=== PATIENT | female | born 1975 | race Caucasian/White ===

== ENCOUNTER → 2021-06-07 | Outpatient (CLI) | payer BC ==
[~2021-06-07] MED LIST: AMBEREN; FLONASE ALLERG9.9 ML INH; IBUPROFEN200 MG PO; LEVOTHYROXINE75 MCG PO
== END ==
LOC: MAMMO 12:29
PROVIDERS: ATTEND Obstetrics & Gynecology
DX: Z12.31 Encounter for screening mammogram for malignant neoplasm of breast (principal)
CPT/HCPCS: 77067

== ENCOUNTER 2021-06-08 10:30 | Observation (INO) | payer BC ==
[2021-06-05 12:14] LABS: BASOPHILS % 0.5 % (0.0-1.0); EOSINOPHILS # (AUTO) 0.1 (0.0-0.4); EOSINOPHILS % 0.7 % (0.0-6.0); HEMOGLOBIN 13.9 g/dL (12.0-16.0); LYMPHOCYTES # (AUTO) 1.6 (1.0-3.2); LYMPHOCYTES % 19.5 % (18.0-39.1); MEAN CORPUSCULAR HEMOGLOBIN 32.3 pg (28-32); MEAN CORPUSCULAR HGB CONC 33.9 g/dL (31-35); MEAN CORPUSCULAR VOLUME 95.1 fL (81-99); MONOCYTES # (AUTO) 0.6 (0.2-0.8); MONOCYTES % 6.9 % (4.4-11.3); NEUTROPHILS # (AUTO) 5.8 (2.1-6.9); NEUTROPHILS % 72.2 % (38.7-80.0); PLATELET COUNT 238 x10e3/uL (140-360); RED BLOOD COUNT 4.31 x10e6/uL (3.6-5.1); RED CELL DISTRIBUTION WIDTH 13.2 % (11.7-14.4)
[2021-06-05 12:21] LABS: CLARITY,URINE CLEAR (CLEAR); COLOR,URINE YELLOW (YELLOW); KETONES,URINE NEGATIVE (NEGATIVE); LEUKOCYTE ESTERASE ,URINE NEGATIVE (NEGATIVE); NITRITE,URINE NEGATIVE (NEGATIVE); PROTEIN,URINE DIPSTICK NEGATIVE (NEGATIVE)
[2021-06-05 12:22] LABS: URINE UROBILINOGEN 0.2 mg/dL (0.2 - 1)
[2021-06-05 12:31] LABS: ANION GAP 13.5 mmol/L (8-16); BLOOD UREA NITROGEN 18 mg/dL (7-26); BUN/CREATININE RATIO 20 (6-25); CALCIUM 9.6 mg/dL (8.4-10.2); CARBON DIOXIDE 28 mmol/L (22-29); CHLORIDE 101 mmol/L (98-107); CREATININE, SERUM 0.88 mg/dL (0.57-1.11); EST GLOMERULAR FILTRATION RATE 69 ML/MIN (60-); GLUCOSE 86 mg/dL (74-118); POTASSIUM 4.5 mmol/L (3.5-5.1); SODIUM 138 mmol/L (136-145)
[~2021-06-08] VITALS: Ht 165.1 cm; Wt 95.7 kg
[~2021-06-08 10:30] MED LIST changes: -IBUPROFEN200 MG PO
[2021-06-08] MEDS ORDERED: LIDOCAINE 1% W/EPINEPHRINE 20 ML VIAL ONE (11:33)
[2021-06-08] MEDS ORDERED: BUPIVACAINE 0.25% 30ML SDV ONE (11:33)
[2021-06-08] MEDS ORDERED: SODIUM CHLORIDE 0.9% 50ML 100 ML ONE (11:52)
[2021-06-08] MEDS ORDERED: IBUPROFEN200 MG PO (11:55)
[2021-06-08] MEDS ORDERED: ACETAMINOPHEN 1000 MG/100 ML 100 ML IV ONE (13:03)
[2021-06-08] MEDS ORDERED: DOCUSATE SODIUM 100 MG CAP PO PRN (16:00)
[2021-06-08] MEDS ORDERED: DIPHENHYDRAMINE HCL 25 MG CAP PO PRN (16:00)
[2021-06-08] MEDS ORDERED: ACETAMINOPHEN 325 MG TAB PO PRN (16:00)
[2021-06-08] MEDS ORDERED: BISACODYL 10 MG SUPP PR PRN (16:00)
[2021-06-08] MEDS ORDERED: Morphine 4mg Syringe 4 MG/ML INJ IM PRN (16:00)
[2021-06-08] MEDS ORDERED: FLUTICASONE PROPIONATE NASAL SPRAY NS PRN (16:00)
[2021-06-08] MEDS ORDERED: FENTANYL CITRATE/PF 100MCG/2 ML INJ ONE (16:16)
[2021-06-08 16:50] VITALS: BP 125/81
[2021-06-08 17:11] VITALS: BP 125/81
[2021-06-08] MEDS: DEXTROSE 5%/LACTATED RINGERS 1,000 ML IV SCH ×2 (18:00→23:27)
[2021-06-08] MEDS: SIMETHICONE 80 MG CHEW PO SCH ×2 (18:00→21:17)
[2021-06-08] MEDS: KETOROLAC TROMETHAMINE 30 MG/ML VIAL IV SCH ×2 (18:00→23:27)
[2021-06-08] MEDS: ONDANSETRON HCL INJ 2MG/ML 2ML 2 MG/ML VIAL IV PRN ×2 (18:00→23:27)
[2021-06-08] MEDS ORDERED: LIDOCAINE HCL 2% LOCAL INJ 5 ML SDV VIAL INJ ONE (19:39)
[2021-06-08] MEDS ORDERED: ONDANSETRON HCL INJ 2MG/ML 2ML 2 MG/ML VIAL ONE (19:39)
[2021-06-08] MEDS ORDERED: KETOROLAC TROMETHAMINE 30 MG/ML VIAL ONE (19:39)
[2021-06-08] MEDS ORDERED: GLYCOPYRROLATE INJ 0.2 MG/ML VIAL ONE (19:39)
[2021-06-08] MEDS ORDERED: DEXAMETHASONE SOD PHOS INJ 4 MG/ML SDV ONE (19:39)
[2021-06-08] MEDS ORDERED: PROPOFOL IV EMULSION 10 MG/ML 20 ML VIAL ONE (19:39)
[2021-06-08] MEDS ORDERED: ACETAMINOPHEN 1000 MG/100 ML IV ONE (19:39)
[2021-06-08] MEDS ORDERED: SEVOFLURANE INHAL SOLN 250 ML PEN BTL ONE (19:39)
[2021-06-08] MEDS ORDERED: POVIDONE IODINE 0.05% 0.05 % ML PO ONE (19:39)
[2021-06-08] MEDS ORDERED: ROCURONIUM BROMIDE 10 MG/ML 5ML VIAL IV ONE (19:39)
[2021-06-08] MEDS ORDERED: NEOSTIGMINE 1 MG/ML 10ML VIAL ONE (19:39)
[2021-06-08 20:00] VITALS: BP 118/78
[2021-06-09 04:00] VITALS: BP 112/68
[2021-06-09] MEDS ORDERED: SODIUM CHLORIDE 0.9% 50ML 50 ML ONE (04:34)
[2021-06-09 04:57] LABS: BASOPHILS % 0.1 % (0.0-1.0); HEMATOCRIT 36.4 % (34.2-44.1); HEMOGLOBIN 12.3 g/dL (12.0-16.0); LYMPHOCYTES # (AUTO) 0.9 (1.0-3.2); LYMPHOCYTES % 6.7 % (18.0-39.1); MEAN CORPUSCULAR HEMOGLOBIN 32.5 pg (28-32); MEAN CORPUSCULAR HGB CONC 33.8 g/dL (31-35); MONOCYTES # (AUTO) 0.8 (0.2-0.8); MONOCYTES % 5.6 % (4.4-11.3); NEUTROPHILS # (AUTO) 12.2 (2.1-6.9); NEUTROPHILS % 87.2 % (38.7-80.0); PLATELET COUNT 226 x10e3/uL (140-360); RED BLOOD COUNT 3.79 x10e6/uL (3.6-5.1); RED CELL DISTRIBUTION WIDTH 13.3 % (11.7-14.4)
[2021-06-09 05:18] LABS: ANION GAP 11.3 mmol/L (8-16); CALCIUM 8.1 mg/dL (8.4-10.2); CREATININE, SERUM 0.93 mg/dL (0.57-1.11); POTASSIUM 4.3 mmol/L (3.5-5.1)
[2021-06-09] MEDS: KETOROLAC TROMETHAMINE 30 MG/ML VIAL IV SCH ×2 (05:54→06:42)
[2021-06-09] MEDS: ONDANSETRON HCL INJ 2MG/ML 2ML 2 MG/ML VIAL IV PRN (05:56)
[2021-06-09] MEDS ORDERED: LEVOTHYROXINE SODIUM 75 MCG TAB PO SCH (06:00)
[2021-06-09 08:01] VITALS: BP 100/57
[2021-06-09 08:12] VITALS: BP 100/57
[2021-06-09] MEDS ORDERED: ONDANSETRON ODT4 MG PO (09:29)
[2021-06-09] MEDS ORDERED: MOTRIN200 MG PO (09:29)
[2021-06-09] MEDS: SIMETHICONE 80 MG CHEW PO SCH (10:18)
== END 2021-06-09 10:50 | disposition home or self-care (01) ==
LOC: OR 10:30 → PACU V 15:48 → MED/SURG 16:47
PROVIDERS: ADMIT Obstetrics & Gynecology; ATTEND Obstetrics & Gynecology
DX: N95.0 Postmenopausal bleeding (principal); N73.6 Female pelvic peritoneal adhesions (postinfective); E03.9 Hypothyroidism, unspecified; Z01.812 Encounter for preprocedural laboratory examination; Z91.048 Other nonmedicinal substance allergy status; Z88.0 Allergy status to penicillin; Z88.2 Allergy status to sulfonamides; Z88.8 Allergy status to other drugs, medicaments and biological substances; Z87.891 Personal history of nicotine dependence
CPT/HCPCS: 36415 ×2; 58571; 80048 ×2; 81003; 84702; 85025 ×2; 86850; 86900; 88307; 94799 ×2; 96361; G0378 ×2; J0131; J0690 ×2; J1100; J1885 ×2; J2001; J2405 ×2; J2704; J2710; J3010; J7121; U0002; 96360